=== PATIENT | male | born 1995 | race Hispanic/Latino ===

== ENCOUNTER 2019-07-19 01:05 | Emergency (ER) | payer OTHER ==
[~2019-07-19] VITALS: Ht 177.8 cm; Wt 136.1 kg
[~2019-07-19 01:05] MED LIST: CLONAZEPAM1 MG PO; OXCARBAZEPINE300 MG PO; OXCARBAZEPINE600 MG PO; ZONISAMIDE100 MG PO
[2019-07-19] MEDS ORDERED: ACETAMINOPHEN/CODEINE 300MG - 30MG TAB ONE (02:51)
[2019-07-19] MEDS ORDERED: ONDANSETRON HCL 4 MG ORAL DISINTEGRATING TAB ONE (02:51)
[2019-07-19] MEDS ORDERED: ACETAMINOPHEN/CODEINE 300MG - 30MG TAB PO ONE (03:00)
[2019-07-19] MEDS ORDERED: ONDANSETRON HCL 4 MG ORAL DISINTEGRATING TAB PO ONE (03:00)
[2019-07-19 03:05] LABS: INFLUENZAE A&B ANTIGEN (RAPID) NEGATIVE (NEGATIVE); STREPTOCOCCUS GRP A ANTIGEN NEGATIVE (NEGATIVE)
[2019-07-19] MEDS ORDERED: SODIUM CHLORIDE 0.9% 1000ML 2,000 ML ONE (03:33)
[2019-07-19] MEDS ORDERED: SODIUM CHLORIDE 0.9% 1000ML 2,000 ML IV ONE (03:45)
[2019-07-19 04:00] LABS: BASOPHILS % 0.4 % (0.0-1.0); EOSINOPHILS % 0.1 % (0.0-6.0); HEMATOCRIT 44.5 % (38.2-49.6); HEMOGLOBIN 14.7 g/dL (14.0-18.0); LYMPHOCYTES # (AUTO) 0.5 (1.0-3.2); LYMPHOCYTES % 5.9 % (18.0-39.1); MEAN CORPUSCULAR HEMOGLOBIN 29.9 pg (28-32); MEAN CORPUSCULAR VOLUME 90.6 fL (81-99); MONOCYTES # (AUTO) 0.7 (0.2-0.8); MONOCYTES % 8.4 % (4.4-11.3); NEUTROPHILS # (AUTO) 7.2 (2.1-6.9); NEUTROPHILS % 84.6 % (38.7-80.0); PLATELET COUNT 286 x10e3/uL (140-360); RED BLOOD COUNT 4.91 x10e6/uL (4.3-5.7); RED CELL DISTRIBUTION WIDTH 12.8 % (11.7-14.4)
[2019-07-19 04:14] LABS: ALANINE AMINOTRANSFERASE 30 IU/L (0-55); ALBUMIN 4.1 g/dL (3.5-5.0); ALBUMIN/GLOBULIN RATIO 1.1 (0.8-2.0); ALKALINE PHOSPHATASE 72 IU/L (40-150); BLOOD UREA NITROGEN 9 mg/dL (7-26); BUN/CREATININE RATIO 9 (6-25); CALCIUM 9.5 mg/dL (8.4-10.2); CARBON DIOXIDE 27 mmol/L (22-29); CHLORIDE 102 mmol/L (98-107); EST GLOMERULAR FILTRATION RATE > 60 ML/MIN (60-); GLUCOSE 93 mg/dL (74-118); SODIUM 136 mmol/L (136-145)
[2019-07-19] MEDS ORDERED: METOCLOPRAMIDE HCL 10 MG/2ML VIAL IV ONE (04:30)
[2019-07-19 04:52] LABS: BILIRUBIN,URINE NEGATIVE (NEGATIVE); CLARITY,URINE CLEAR (CLEAR); COLOR,URINE YELLOW (YELLOW); KETONES,URINE NEGATIVE (NEGATIVE); LEUKOCYTE ESTERASE ,URINE NEGATIVE (NEGATIVE); NITRITE,URINE NEGATIVE (NEGATIVE); PROTEIN,URINE DIPSTICK TRACE (NEGATIVE); URINE UROBILINOGEN 0.2 mg/dL (0.2 - 1)
[2019-07-19 05:11] LABS: BACTERIA,URINE RARE /HPF; EPITHELIAL CELLS,URINE FEW /LPF; RBC,URINE 0-5 /HPF (0-5)
--- NOTE | 2019-07-19 05:33 | Diagnostic Imaging Report ---
EXAMINATION: CHEST 2 VIEWS INDICATION: Fever bodyaches nausea dizziness COMPARISON: None FINDINGS: TUBES and LINES: None. LUNGS: Normal lung volumes. Lungs are clear. No consolidations. PLEURA: No pleural effusion or pneumothorax. HEART AND MEDIASTINUM: The cardiomediastinal silhouette is unremarkable. BONES AND SOFT TISSUES: No acute osseous lesion. Soft tissues are unremarkable. UPPER ABDOMEN: No free air under the diaphragm. IMPRESSION: No acute thoracic radiographic abnormality. Signed by: Charles Bennett DO on 07/19/2019 5:30 AM
[2019-07-19] MEDS ORDERED: ACETAMINOPHEN 325 MG TAB ONE (06:41)
[2019-07-19] MEDS ORDERED: ACETAMINOPHEN 325 MG TAB PO ONE (06:45)
[2019-07-19] MEDS ORDERED: SODIUM CHLORIDE 0.9% 1000ML 1,000 ML IV STA (07:06)
--- NOTE | 2019-07-19 08:01 | NUR ---
consent for spinal tap signed by patient.
--- NOTE | 2019-07-19 08:05 | NUR ---
Dr. Taylor in room to complete spinal tap.
[2019-07-19 08:30] LABS: APPEARANCE,CSF CLEAR (CLEAR); COLOR,CSF COLORLESS (COLORLESS)
[2019-07-19 08:31] LABS: TUBE NUMBER 1
[2019-07-19 09:27] LABS: WHITE BLOOD CELL,CSF 1 cells/uL (0-5)
[2019-07-19 09:45] LABS: LYMPHOCYTES,CSF 40 % (40-80); MONOCYTES,CSF 8 %; NEUTROPHILS,CSF 52 % (0-6)
== END 2019-07-19 10:28 | disposition home or self-care (01) ==
LOC: UNMERGE 01:05 → MERGE 01:05 → ER 01:05
DX: R50.9 Fever, unspecified (principal); R05 Cough; B34.9 Viral infection, unspecified
CPT/HCPCS: 36415; 71046; 80053; 81001; 83518; 85025; 86789; 87070 ×2; 87205; 87400; 89051; 99284; J2765; J7030; Q0162

== ENCOUNTER 2019-07-28 13:25 | Emergency (ER) | payer OTHER ==
[~2019-07-28] VITALS: Ht 177.8 cm; Wt 136.1 kg
--- OUTSIDE RECORDS SUMMARY | 2019-07-28 13:28 | XMS REPORT ---
Author Author [facility] Address Unknown Phone Unavailable Care Team Providers Care Visitor Services Specialist Name Role Phone ARENASMELCHOR Unavailable Unavailable Terry DAVID Unavailable Unavailable Luis MILIAN Unavailable Unavailable WARD MILLIGAN Unavailable Unavailable Problems This patient has no known problems. Allergies, Adverse Reactions, Alerts This patient has no known allergies or adverse reactions. Medications This patient has no known medications. Encounters Start Date/Time End Date/Time Encounter Type Admission Type Attending [facility] Facility Care Department Encounter ID 2016-11-27 00:00:00 2016-11-28 00:00:00 Outpatient [facility] [id number] Results Test Description Test Time Test Comments Text Results Atomic Results Result Comments CHEST 2 VIEWS 2019-07-19 05:16:00 [place] [address] Patient Name: MANFRED CHRISTENSEN MR #: [id number] : 1995 Age/Sex: 23/M Req #: [id number] Adm Physician: Ordered by: ARI DE LA FUENTE DO Report #: [id number] Location: ER Room/Bed: Procedure: [id number] DX/CHEST 2 VIEWS Exam Date: 07/19/19 Exam Time: 0230 REPORT STATUS: Signed EXAMINATION: CHEST 2 VIEWS INDICATION: Fever bodyaches nausea dizziness COMPARISON: None FINDINGS: TUBES and LINES: None. LUNGS: Normal lung volumes. Lungs are clear. No consolidations. PLEURA: No pleural effusion or pneumothorax. HEART AND MEDIASTINUM: The cardiomediastinal silhouette is unremarkable. BONES AND SOFT TISSUES: No acute osseous lesion. Soft tissues are unremarkable. UPPER ABDOMEN: No free air under the diaphragm. IMPRESSION: No acute thoracic radiographic abnormality. Signed by: Charles Bennett DO on 07/19/2019 5:30 AM Dictated By: CHARLES BENNETT DO 9 Transcribed By: JOSÉ LUIS on 07/19/19529 COPY TO: ARI DE LA FUENTE DO CHEST 2 VIEWS 2019-07-19 05:16:00 [place] [address] Patient Name: MANFRED CHRISTENSEN MR #: [id number] : 1995 Age/Sex: 23/M Req #: [id number] Adm Physician: Ordered by: ARI DE LA FUENTE DO Report #: [id number] Location: ER Room/Bed: Procedure: [id number] DX/CHEST 2 VIEWS Exam Date: 07/19/19 Exam Time: 0230 REPORT STATUS: Signed EXAMINATION: CHEST 2 VIEWS INDICATION: Fever bodyaches nausea dizziness COMPARISON: None FINDINGS: TUBES and LINES: None. LUNGS: Normal lung volumes. Lungs are clear. No consolidations. PLEURA: No pleural effusion or pneumothorax. HEART AND MEDIASTINUM: The cardiomediastinal silhouette is unremarkable. BONES AND SOFT TISSUES: No acute osseous lesion. Soft tissues are unremarkable. UPPER ABDOMEN: No free air under the diaphragm. IMPRESSION: No acute thoracic radiographic abnormality. Signed by: Charles Bennett DO on 07/19/2019 5:30 AM Dictated By: CHARLES BENNETT DO 9 Transcribed By: JOSÉ LUIS on 07/19/19529 COPY TO: ARI DE LA FUENTE DO ABDOMEN-1VIEW (KUB) 2018-02-23 09:02:00 [place] [address] Patient Name: MANFRED CHRISTENSEN MR #: [id number] : 1995 Age/Sex: 23/M Req #: [id number] Adm Physician: Ordered by: POONAM DAVID MD Report #: [id number] Location: ER Room/Bed: Procedure: [id number] DX/ABDOMEN-1VIEW (KUB) Exam Date: 02/23/18 Exam Time: 0810 REPORT STATUS: Signed PROCEDURE: X-RAY ABDOMEN - KUB COMPARISON: None. INDICATIONS: ABDOMINAL PAIN FINDINGS: There is a non- obstructive bowel-gas pattern. There are no calcifications projected over the renal shadows, expected course of the ureters or bladder. No significantly elevated stool burden. There are no acute osseous abnormalities. The lung bases are clear. CONCLUSION: Unremarkable abdominal radiographs. Dictated by: PREMA DRUMMOND M.D. on 02/23/2018 at 9:02 Electronically approved by: PREMA DRUMMOND M.D. on 02/23/2018 at 9:02 Dictated By: PREMA DRUMMOND MD 1 Transcribed By: NGA on 02/23/18901 COPY TO: POONAM DAVID MD ABDOMEN-1VIEW (KUB) 2018-02-23 09:02:00 [place] [address] Patient Name: MANFRED CHRISTENSEN MR #: [id number] : 1995 Age/Sex: 23/M Req #: [id number] Adm Physician: Ordered by: POONAM DAVID MD Report #: [id number] Location: ER Room/Bed: Procedure: [id number] DX/ABDOMEN-1VIEW (KUB) Exam Date: 02/23/18 Exam Time: 809 REPORT STATUS: Signed PROCEDURE: X-RAY ABDOMEN - KUB COMPARISON: None. INDICATIONS: ABDOMINAL PAIN FINDINGS: There is a non- obstructive bowel-gas pattern. There are no calcifications projected over the renal shadows, expected course of the ureters or bladder. No significantly elevated stool burden. There are no acute osseous abnormalities. The lung bases are clear. CONCLUSION: Unremarkable abdominal radiographs. Dictated by: PREMA DRUMMOND M.D. on 02/23/2018 at 9:02 Electronically approved by: PREMA DRUMMOND M.D. on 02/23/2018 at 9:02 Dictated By: PREMA DRUMMOND MD 1 Transcribed By: NGA on 02/23/18901 COPY TO: POONAM DAVID MD CBC W/PLT COUNT & AUTO DIFFERENTIAL 2016-07-17 07:24:00 WHITE BLOOD CELL COUNT (BEAKER) (test pidb=915) 8.5 K/ L 4.0-10.0 RED BLOOD CELL COUNT (BEAKER) (test rrba=970) 4.71 M/ L 4.20-5.80 HEMOGLOBIN (BEAKER) (test ydhz=167) 13.9 GM/DL 13.0-16.8 HEMATOCRIT (BEAKER) (test mtnk=259) 43.5 % 40.0-50.0 MEAN CORPUSCULAR VOLUME (BEAKER) (test pqrs=771) 92.3 fL 82.0-98.0 MEAN CORPUSCULAR HEMOGLOBIN (BEAKER) (test kush=916) 29.5 pg 27.0-33.0 MEAN CORPUSCULAR HEMOGLOBIN CONC (BEAKER) (test qmkt=299) 32.0 GM/DL 32.0-36.0 RED CELL DISTRIBUTION WIDTH (BEAKER) (test pydq=713) 12.3 % 10.3-14.2 PLATELET COUNT (BEAKER) (test hrgs=561) 283 K/CU MM 150-430 MEAN PLATELET VOLUME (BEAKER) (test ebpi=800) 7.2 fL 6.5-10.5 NUCLEATED RED BLOOD CELLS (BEAKER) (test uybv=588) 0 /100 WBC 0-0 NEUTROPHILS RELATIVE PERCENT (BEAKER) (test ewok=074) 59 % LYMPHOCYTES RELATIVE PERCENT (BEAKER) (test nftg=141) 33 % MONOCYTES RELATIVE PERCENT (BEAKER) (test hwwm=103) 7 % EOSINOPHILS RELATIVE PERCENT (BEAKER) (test deqe=333) 1 % BASOPHILS RELATIVE PERCENT (BEAKER) (test ehru=181) 1 % NEUTROPHILS ABSOLUTE COUNT (BEAKER) (test xvnu=664) 5.00 K/ L 1.80-8.00 LYMPHOCYTES ABSOLUTE COUNT (BEAKER) (test dodv=711) 2.78 K/ L 1.48-4.50 MONOCYTES ABSOLUTE COUNT (BEAKER) (test coqz=158) 0.59 K/ L 0.00-1.30 EOSINOPHILS ABSOLUTE COUNT (BEAKER) (test hdoa=994) 0.09 K/ L 0.00-0.50 BASOPHILS ABSOLUTE COUNT (BEAKER) (test toem=229) 0.05 K/ L 0.00-0.20 0.00COMPREHENSIVE METABOLIC [id number] 06:50:00* Test Item Value Reference Range Comments TOTAL PROTEIN (BEAKER) (test syyd=963) 7.3 gm/dL 6.0-8.3 Specimen moderately hemolyzed ALBUMIN (BEAKER) (test zhcc=9285) 3.7 g/dL 3.5-5.0 Specimen moderately hemolyzed ALKALINE PHOSPHATASE (BEAKER) (test lmau=916) 80 U/L 40-150 BILIRUBIN TOTAL (BEAKER) (test ndaw=001) 0.4 mg/dL 0.2-1.2 Specimen moderately hemolyzed SODIUM (BEAKER) (test lhgd=095) 137 meq/L 136-145 POTASSIUM (BEAKER) (test qdqn=102) 4.3 meq/L 3.5-5.1 Specimen moderately hemolyzed CHLORIDE (BEAKER) (test nubx=925) 105 meq/L 98-107 CO2 (BEAKER) (test xyoh=070) 24 meq/L 22-29 BLOOD UREA NITROGEN (BEAKER) (test ucri=456) 12 mg/dL 7-21 CREATININE (BEAKER) (test knxo=369) 0.75 mg/dL 0.57-1.25 Specimen moderately hemolyzed GLUCOSE RANDOM (BEAKER) (test gydn=503) 103 mg/dL 70-105 CALCIUM (BEAKER) (test zqax=569) 8.8 mg/dL 8.4-10.2 AST (SGOT) (BEAKER) (test fetc=322) 25 U/L 5-34 Specimen moderately hemolyzed ALT (SGPT) (BEAKER) (test yhog=538) 31 U/L 6-55 Specimen moderately hemolyzed EGFR (BEAKER) (test vgam=3341) 131 mL/min/1.73 sq m ESTIMATED GFR IS NOT ACCURATE CREATININE CLEARANCE IN PREDICTING GLOMERULAR FILTRATION RATE. ESTIMATED GFR IS NOT APPLICABLE FOR DIALYSIS PATIENTS. CBC W/PLT COUNT & AUTO [id number] 17:37:00* Test Item Value Reference Range Comments WHITE BLOOD CELL COUNT (BEAKER) (test bxry=394) 9.5 K/ L 4.0-10.0 RED BLOOD CELL COUNT (BEAKER) (test hbju=286) 4.52 M/ L 4.20-5.80 HEMOGLOBIN (BEAKER) (test pkmi=245) 13.9 GM/DL 13.0-16.8 HEMATOCRIT (BEAKER) (test hjht=335) 40.6 % 40.0-50.0 MEAN CORPUSCULAR VOLUME (BEAKER) (test chxq=969) 89.8 fL 82.0-98.0 MEAN CORPUSCULAR HEMOGLOBIN (BEAKER) (test qmpm=174) 30.8 pg 27.0-33.0 MEAN CORPUSCULAR HEMOGLOBIN CONC (BEAKER) (test yhhw=852) 34.3 GM/DL 32.0-36.0 RED CELL DISTRIBUTION WIDTH (BEAKER) (test wlhy=488) 13.3 % 10.3-14.2 PLATELET COUNT (BEAKER) (test wyyu=773) 268 K/CU MM 150-430 MEAN PLATELET VOLUME (BEAKER) (test dzqp=575) 7.5 fL 6.5-10.5 NUCLEATED RED BLOOD CELLS (BEAKER) (test klap=256) 0 /100 WBC 0-0 NEUTROPHILS RELATIVE PERCENT (BEAKER) (test bijl=642) 80 % LYMPHOCYTES RELATIVE PERCENT (BEAKER) (test psbm=279) 13 % MONOCYTES RELATIVE PERCENT (BEAKER) (test etvv=864) 6 % EOSINOPHILS RELATIVE PERCENT (BEAKER) (test ludp=024) 1 % BASOPHILS RELATIVE PERCENT (BEAKER) (test fzum=942) 0 % NEUTROPHILS ABSOLUTE COUNT (BEAKER) (test uder=121) 7.55 K/ L 1.80-8.00 LYMPHOCYTES ABSOLUTE COUNT (BEAKER) (test ugfl=044) 1.25 K/ L 1.48-4.50 MONOCYTES ABSOLUTE COUNT (BEAKER) (test muij=597) 0.57 K/ L 0.00-1.30 EOSINOPHILS ABSOLUTE COUNT (BEAKER) (test rwel=228) 0.06 K/ L 0.00-0.50 BASOPHILS ABSOLUTE COUNT (BEAKER) (test woyv=342) 0.01 K/ L 0.00-0.20 [id number] 16:44:00* Test Item Value Reference Range Comments CARBAMAZEPINE LEVEL (BEAKER) (test jyqv=234) < ug/mL 4.0-12.0 BASIC METABOLIC [id number] 16:29:00* Test Item Value Reference Range Comments SODIUM (BEAKER) (test fvhy=057) 137 meq/L 136-145 POTASSIUM (BEAKER) (test thwg=516) 4.3 meq/L 3.5-5.1 Specimen slightly hemolyzed CHLORIDE (BEAKER) (test qwzt=746) 104 meq/L 98-107 CO2 (BEAKER) (test crom=147) 22 meq/L 22-29 BLOOD UREA NITROGEN (BEAKER) (test lxqs=554) 17 mg/dL 7-21 CREATININE (BEAKER) (test psiz=021) 0.77 mg/dL 0.57-1.25 Specimen slightly hemolyzed GLUCOSE RANDOM (BEAKER) (test mrpk=325) 106 mg/dL 70-105 CALCIUM (BEAKER) (test ldjh=961) 9.2 mg/dL 8.4-10.2 EGFR (BEAKER) (test uoxr=2925) 128 mL/min/1.73 sq m ESTIMATED GFR IS NOT ACCURATE CREATININE CLEARANCE IN PREDICTING GLOMERULAR FILTRATION RATE. ESTIMATED GFR IS NOT APPLICABLE FOR DIALYSIS PATIENTS. VITAMIN D, [id number] 06:31:00* Test Item Value Reference Range Comments VITAMIN D 25-OH (BEAKER) (test qdgq=2998) < ng/mL 13.0-47.8 TSH/FREE T4 IF [id number] 06:22:00* Test Item Value Reference Range Comments THYROID STIMULATING HORMONE (BEAKER) (test mxqd=369) 0.97 uIU/mL 0.35-4.94 VITAMIN B12 AND [id number] 06:22:00* Test Item Value Reference Range Comments VITAMIN B12 (BEAKER) (test tcpe=325) 379 pg/mL 213-816 FOLATE (BEAKER) (test unyp=220) 6.0 ng/mL >=7.0 Effective 04/04/2014: Folate Reference Range ChangeNew: >=7.0 Previous: >=5.4 COMPREHENSIVE METABOLIC [id number] 05:56:00* Test Item Value Reference Range Comments TOTAL PROTEIN (BEAKER) (test wyqs=942) 6.5 gm/dL 6.0-8.3 ALBUMIN (BEAKER) (test wgsq=0523) 3.6 g/dL 3.5-5.0 ALKALINE PHOSPHATASE (BEAKER) (test dtrf=501) 78 U/L 40-150 BILIRUBIN TOTAL (BEAKER) (test wftn=554) 0.3 mg/dL 0.2-1.2 SODIUM (BEAKER) (test wylf=264) 137 meq/L 136-145 POTASSIUM (BEAKER) (test wpjo=698) 4.0 meq/L 3.5-5.1 CHLORIDE (BEAKER) (test inde=495) 105 meq/L 98-107 CO2 (BEAKER) (test usrr=920) 25 meq/L 22-29 BLOOD UREA NITROGEN (BEAKER) (test seug=124) 11 mg/dL 7-21 CREATININE (BEAKER) (test hsyi=227) 0.69 mg/dL 0.57-1.25 GLUCOSE RANDOM (BEAKER) (test xdcy=289) 115 mg/dL 70-105 CALCIUM (BEAKER) (test thod=007) 8.7 mg/dL 8.4-10.2 AST (SGOT) (BEAKER) (test oavc=533) 18 U/L 5-34 ALT (SGPT) (BEAKER) (test qghq=847) 24 U/L 6-55 EGFR (BEAKER) (test tnla=7205) 145 mL/min/1.73 sq m ESTIMATED GFR IS NOT ACCURATE CREATININE CLEARANCE IN PREDICTING GLOMERULAR FILTRATION RATE. ESTIMATED GFR IS NOT APPLICABLE FOR DIALYSIS PATIENTS. PHENYTOIN LEVEL, [id number] 05:54:00* Test Item Value Reference Range Comments PHENYTOIN (DILANTIN) (BEAKER) (test slep=121) 0.9 ug/mL 10.0-20.0 HEPATIC FUNCTION [id number] 05:51:00* Test Item Value Reference Range Comments TOTAL PROTEIN (BEAKER) (test vlwd=958) 6.4 gm/dL 6.0-8.3 ALBUMIN (BEAKER) (test hinx=3091) 3.7 g/dL 3.5-5.0 BILIRUBIN TOTAL (BEAKER) (test sdid=048) 0.3 mg/dL 0.2-1.2 BILIRUBIN DIRECT (BEAKER) (test mssi=793) 0.1 mg/dL 0.1-0.5 ALKALINE PHOSPHATASE (BEAKER) (test keab=000) 77 U/L 40-150 AST (SGOT) (BEAKER) (test exiw=442) 16 U/L 5-34 ALT (SGPT) (BEAKER) (test btli=674) 24 U/L 6-55 CBC (HEMOGRAM ONLY)2016-07-07 05:47:00* Test Item Value Reference Range Comments WHITE BLOOD CELL COUNT (BEAKER) (test whgq=469) 9.0 K/ L 4.0-10.0 RED BLOOD CELL COUNT (BEAKER) (test ynrz=314) 4.68 M/ L 4.20-5.80 HEMOGLOBIN (BEAKER) (test tqfv=868) 14.4 GM/DL 13.0-16.8 HEMATOCRIT (BEAKER) (test oebx=479) 43.1 % 40.0-50.0 MEAN CORPUSCULAR VOLUME (BEAKER) (test bkdt=252) 92.0 fL 82.0-98.0 MEAN CORPUSCULAR HEMOGLOBIN (BEAKER) (test mhfe=770) 30.7 pg 27.0-33.0 MEAN CORPUSCULAR HEMOGLOBIN CONC (BEAKER) (test mskm=384) 33.4 GM/DL 32.0-36.0 RED CELL DISTRIBUTION WIDTH (BEAKER) (test tklp=455) 12.0 % 10.3-14.2 PLATELET COUNT (BEAKER) (test eeff=935) 287 K/CU MM 150-430 MEAN PLATELET VOLUME (BEAKER) (test bbel=106) 7.0 fL 6.5-10.5 NUCLEATED RED BLOOD CELLS (BEAKER) (test ixar=413) 0 /100 WBC 0-0 0.00RAPID DRUG SCREEN, [id number] 11:54:00* Test Item Value Reference Range Comments BARBITURATE URINE (BEAKER) (test scaw=574) Negative Negative BENZODIAZEPINE SCREEN URINE (BEAKER) (test exci=737) Negative Negative COCAINE (METAB.) SCREEN (BEAKER) (test cond=3196) Negative Negative METHADONE SCREEN (BEAKER) (test veyg=2350) Negative Negative OPIATE SCREEN URINE (BEAKER) (test wney=433) Negative Negative CANNABINOID SCREEN URINE (BEAKER) (test tcaf=476) Negative Negative AMPH/METHAMPH SCREEN (BEAKER) (test fqch=7053) Negative Negative PHENCYCLIDINE SCREEN URINE (BEAKER) (test xzhp=201) Negative Negative OXYCODONE SCREEN URINE (BEAKER) (test vwor=8032) Negative Negative DRUG CUTOFF CONC.Cocaine 300 ng/mL Cannabinoid 50 ng/mL Benzodiazepine 200 ng/mLBarbiturate 200 ng/mLPh encyclidine 25 ng/mLOpiate 300 ng/mLMethadone 300 ng/mLAmphetamine/ 1000 ng/mL MethamphetamineOxycodone 300 ng/mLURINALYSIS W/ [id number] 11:47:00* Test Item Value Reference Range Comments COLOR (BEAKER) (test escx=809) Yellow CLARITY (BEAKER) (test fowg=510) Hazy SPECIFIC GRAVITY UA (BEAKER) (test vbwh=107) 1.020 1.001-1.035 PH UA (BEAKER) (test ldan=581) 7.5 5.0-8.0 PROTEIN UA (BEAKER) (test gzdm=828) 10 mg/dL Negative GLUCOSE UA (BEAKER) (test sqmj=655) Negative Negative KETONES UA (BEAKER) (test cqaa=015) Negative Negative BILIRUBIN UA (BEAKER) (test nhxd=103) Negative Negative BLOOD UA (BEAKER) (test bihi=774) Negative Negative NITRITE UA (BEAKER) (test qgwj=003) Negative Negative LEUKOCYTE ESTERASE UA (BEAKER) (test nrkq=879) Trace Negative UROBILINOGEN UA (BEAKER) (test vwxt=362) 2.0 mg/dL 0.2-1.0 RBC UA (BEAKER) (test igxk=671) 0 /HPF WBC UA (BEAKER) (test ggcn=126) 0 /HPF MUCUS (BEAKER) (test aeoy=7654) Rare SQUAMOUS EPITHELIAL (BEAKER) (test dkho=656) 1 /HPF YEAST (BEAKER) (test tgmw=1928) Few SOURCE(BEAKER) (test nssn=1760) Urine, Clean Catch BASIC METABOLIC [id number] 11:28:00* Test Item Value Reference Range Comments SODIUM (BEAKER) (test jmcb=369) 137 meq/L 136-145 POTASSIUM (BEAKER) (test qzdl=561) 4.0 meq/L 3.5-5.1 CHLORIDE (BEAKER) (test jblu=255) 102 meq/L 98-107 CO2 (BEAKER) (test fpan=019) 25 meq/L 22-29 BLOOD UREA NITROGEN (BEAKER) (test sbcf=750) 13 mg/dL 7-21 CREATININE (BEAKER) (test mwio=866) 0.78 mg/dL 0.57-1.25 GLUCOSE RANDOM (BEAKER) (test vcsu=667) 114 mg/dL 70-105 CALCIUM (BEAKER) (test xtps=593) 9.4 mg/dL 8.4-10.2 EGFR (BEAKER) (test lfrt=1817) 126 mL/min/1.73 sq m ESTIMATED GFR IS NOT ACCURATE CREATININE CLEARANCE IN PREDICTING GLOMERULAR FILTRATION RATE. ESTIMATED GFR IS NOT APPLICABLE FOR DIALYSIS PATIENTS. CBC W/PLT COUNT & AUTO [id number] 11:25:00* Test Item Value Reference Range Comments WHITE BLOOD CELL COUNT (BEAKER) (test gfyi=883) 10.3 K/ L 4.0-10.0 RED BLOOD CELL COUNT (BEAKER) (test kfus=199) 4.67 M/ L 4.20-5.80 HEMOGLOBIN (BEAKER) (test ifta=369) 14.4 GM/DL 13.0-16.8 HEMATOCRIT (BEAKER) (test iiez=021) 42.0 % 40.0-50.0 MEAN CORPUSCULAR VOLUME (BEAKER) (test hkxp=895) 90.0 fL 82.0-98.0 MEAN CORPUSCULAR HEMOGLOBIN (BEAKER) (test etqy=361) 30.9 pg 27.0-33.0 MEAN CORPUSCULAR HEMOGLOBIN CONC (BEAKER) (test cyrv=298) 34.3 GM/DL 32.0-36.0 RED CELL DISTRIBUTION WIDTH (BEAKER) (test ofix=127) 13.0 % 10.3-14.2 PLATELET COUNT (BEAKER) (test zsoz=446) 310 K/CU MM 150-430 MEAN PLATELET VOLUME (BEAKER) (test wzsm=812) 7.2 fL 6.5-10.5 NUCLEATED RED BLOOD CELLS (BEAKER) (test qjvc=284) 0 /100 WBC 0-0 NEUTROPHILS RELATIVE PERCENT (BEAKER) (test jylz=638) 79 % LYMPHOCYTES RELATIVE PERCENT (BEAKER) (test bnpw=052) 14 % MONOCYTES RELATIVE PERCENT (BEAKER) (test yhpk=735) 5 % EOSINOPHILS RELATIVE PERCENT (BEAKER) (test rcml=609) 1 % BASOPHILS RELATIVE PERCENT (BEAKER) (test znxt=381) 0 % NEUTROPHILS ABSOLUTE COUNT (BEAKER) (test ycmc=172) 8.13 K/ L 1.80-8.00 LYMPHOCYTES ABSOLUTE COUNT (BEAKER) (test xbdi=802) 1.41 K/ L 1.48-4.50 MONOCYTES ABSOLUTE COUNT (BEAKER) (test srsz=654) 0.56 K/ L 0.00-1.30 EOSINOPHILS ABSOLUTE COUNT (BEAKER) (test eiqm=257) 0.11 K/ L 0.00-0.50 BASOPHILS ABSOLUTE COUNT (BEAKER) (test tfpz=534) 0.04 K/ L 0.00-0.20 0.00
[2019-07-28 14:31] LABS: STREPTOCOCCUS GRP A ANTIGEN NEGATIVE (NEGATIVE)
[2019-07-28 14:36] LABS: INFLUENZAE A&B ANTIGEN (RAPID) NEGATIVE (NEGATIVE)
[2019-07-28 15:04] VITALS: BP 131/83
== END 2019-07-28 15:15 | disposition home or self-care (01) ==
LOC: ER 13:25
DX: J02.0 Streptococcal pharyngitis (principal); G40.909 Epilepsy, unspecified, not intractable, without status epilepticus
CPT/HCPCS: 83518; 87070; 87400; 99283

== ENCOUNTER 2019-10-03 14:12 | Emergency (ER) | payer OTHER ==
[~2019-10-03] VITALS: Ht 177.8 cm; Wt 136.1 kg
--- OUTSIDE RECORDS SUMMARY | 2019-10-03 14:15 | XMS REPORT | Clinical Summary ---
Author Author [facility] Address Unknown Phone Unavailable Care Team Providers Care Loft Worker Name Role Phone Gill Porras MD PCP Unavailable Allergies No Known Allergies Medications End Date Status Medication Sig Dispensed Refills Start Date Active OXcarbazepine (TRILEPTAL) Take 600 mg 0 600 MG tablet by mouth every morning . Active OXcarbazepine (TRILEPTAL) Take 600 mg 0 600 MG tablet by mouth daily 600 mg at noon time . Active OXcarbazepine (TRILEPTAL) Take 1,200 mg 0 600 MG tablet by mouth nightly. Active Problems Problem Noted Date Status epilepticus 07/06/2016 Seizure 08/08/2013 Immunizations Name Dates Previously Given Next Due Influenza Three-TIV PF 5+ 07/17/2016 YR Family History Medical History Relation Name Comments Depression Brother Depression Brother Depression Father Heart disease Father Depression Mother Drug abuse Paternal Uncle Depression Sister Relation Name Status Comments Brother Brother Father Mother Paternal Uncle Sister Social History Date Tobacco Use Types Packs/Day Years Used Never Smoker Alcohol Use Drinks/Week oz/Week Comments No Sex Assigned at Date Recorded Not on file Industry Job Start Date Occupation Not on file Not on file Not on file Travel End Travel History Travel Start No recent travel history available. Last Filed Vital Signs Not on file Plan of Treatment Not on file Results Not on fileafter 10/02/2018 Insurance Payer Benefit Subscriber ID Type Phone Address Plan / Group MEDICAID - MEDICAID [facility] xxxxxxxxx [employer] id [facility] Contracted PLAN [phone] Advance Directives For more information, please contact: [address] [address] Date Inactivated Comments Code Status Date Activated 07/17/2016 8:07 PM Full Code 07/16/2016 7:26 PM This code status was determined by: Patient 07/08/2016 2:12 AM Full Code 07/06/2016 3:05 PM This code status was determined by: Patient
--- OUTSIDE RECORDS SUMMARY | 2019-10-03 14:15 | XMS REPORT ---
Author Author [facility] t Organization [facility] Address [address] [facility] [address] [place] [address] Phone Unavailable Care Team Providers Care Intellectual Property Lawyer Name Role Phone NO, PCP PCP Unavailable MELCHOR ARENAS Attphys Unavailable Terry DAVID Attphys Unavailable Luis MILIAN Attphys Unavailable WARD MILLIGAN Attphys Unavailable JOEY YANES Admphys Unavailable JILLIAN WOLF-Chad Admphys Unavailable Payers Payer Name Policy Type Policy Number Effective Date Expiration Date S mony [facility] [employer] [id number] 2016 00:00 :00 [facility] [employer] [id number] 2016 00:00 :00 [facility] [employer] [id number] 2016 00:00 :00 [facility] [employer] [id number] 2016 00:00 :00 [facility] Problems Condition Name Condition Details Condition Category Status Onset Date Resolution Date Last Treatment Date Treating Clinician Comments Source Seizure Seizures Problem Active [facility] Allergies, Adverse Reactions, Alerts This patient has no known allergies or adverse reactions. Medications Ordered Medication Name Filled Medication Name Start Date Stop Da te Current Medication? Ordering Clinician Indication Dosage Frequency Signature (SIG) Comments Components Source Clonazepam 1 Mg Tablet Clonazepam 1 Mg Tablet Yes 1 As Needed as needed for Seizure [facility] Oxcarbazepine 300 Mg Tablet Oxcarbazepine 300 Mg Tablet Yes 900 Daily [facility] Oxcarbazepine 600 Mg Tablet Oxcarbazepine 600 Mg Tablet Yes [address] [facility] Zonisamide 100 Mg Capsule Zonisamide 100 Mg Capsule Yes 100 Bedtime [facility] Clonazepam 1 Mg Tablet Clonazepam 1 Mg Tablet Yes 1 As Needed as needed for Seizure [facility] Oxcarbazepine 300 Mg Tablet Oxcarbazepine 300 Mg Tablet Yes 900 Daily [facility] Oxcarbazepine 600 Mg Tablet Oxcarbazepine 600 Mg Tablet Yes [address] [facility] Zonisamide 100 Mg Capsule Zonisamide 100 Mg Capsule Yes 100 Bedtime [facility] Procedures Procedure Date / Time Performed Performing Clinician [facility] e X-ray of chest, two views 2019-07-28 00:00:00 SHANITA ANDERSON [facility] X-ray of chest, two views 2019-07-19 00:00:00 ARI DE LA FUENTE [facility] Encounters Start Date/Time End Date/Time Encounter Type Admission Type Attendi [facility] Emergency Department Facility Care Department Encounter ID Source 2019-07-28 13:25:00 2019-07-28 15:15:00 Departed Emergency Room [facility] [id number] [facility] 2019-07-19 01:05:00 2019-07-19 10:28:00 Departed Emergency Room 1 [facility] [id number] [facility] 2019-07-19 01:05:00 2019-07-19 10:28:00 Departed Emergency Room 1 ARENAS, [facility] [id number] [facility] 2018-02-23 07:27:00 2018-02-23 10:04:00 Departed Emergency Room 1 POONAM DAVID [facility] [id number] [facility] 2017-10-16 09:26:00 2017-10-16 10:34:00 Departed Emergency Room [facility] [id number] [facility] 2017-07-06 19:05:00 2017-07-06 20:39:00 Departed Emergency Room [facility] [id number] [facility] 2016-11-27 00:00:00 2016-11-28 00:00:00 Outpatient [facility] [id number] [facility] Results Test Description Test Time Test Comments Results Result Comments Source Influenza Virus Types A,B Antigen 2019-07-28 14:36:00 Test Item Influenza Virus Types A,B Antigen (test code = 59076-9) NEGATIVE NEGATIVE [facility] A Streptococcus Uzgehn0488-87-24 14:31:00* Test Item Value Reference Range Interpretation Comments Group A Streptococcus Screen (test code = 54383-1) NEGATIVE [facility] West Nile Virus IgG Antibody 2019-07-22 05:15:00* Test Item Value Reference Range Interpretation Comments CSF West Nile Virus IgG Antibody (test code = 88138-5) Negative Negative No detectable West Nile Virus IgG Antibody. If a recentinfection is suspected, a nother specimen should besubmitted for testing within 7-14 days.[facility] West Nile Virus IgM Iujcwqfb0272-95-64 05:15:00* Test Item Value Reference Range Interpretation Comments CSF West Nile Virus IgM Antibody (test code = 81085-0) Negative Negative No detectable West Nile Virus IgM Antibody. If a recentinfection is suspected, a nother specimen should besubmitted for testing within 7-14 days.Performed at: [address] [id number] Director: Sa gosia White MD, Phone: [phone] [facility] Health [facility] Qgcltojwedt5986-38-09 09:45:00* Test Item Value Reference Range Interpretation Comments CSF Neutrophils (test code = 28899-1) 52 0-6 [facility] Lcszbzenbra0192-09-37 09:45:00* Test Item Value Reference Range Interpretation Comments CSF Lymphocytes (test code = 20066-6) 40 40-80 [facility] Venhldpro2111-65-44 09:45:00* Test Item Value Reference Range Interpretation Comments CSF Monocytes (test code = 04321-6) 8 [facility] Total Cells Mdmnzfk7659-09-06 09:45:00* Test Item Value Reference Range Interpretation Comments CSF Total Cells Counted (test code = 98010-0) 52 [facility] Mvozcweqfuc6266-01-74 09:45:00* Test Item Value Reference Range Interpretation Comments CSF Neutrophils (test code = 32236-0) 52 0-6 [facility] Qgrodonjngg2438-26-42 09:45:00* Test Item Value Reference Range Interpretation Comments CSF Lymphocytes (test code = 03364-3) 40 40-80 [facility] Arjwcbznw3107-05-53 09:45:00* Test Item Value Reference Range Interpretation Comments CSF Monocytes (test code = 65890-5) 8 [facility] Total Cells Mfbifud0949-50-90 09:45:00* Test Item Value Reference Range Interpretation Comments CSF Total Cells Counted (test code = 36130-4) 52 [facility] [id number] 09:27:00* Test Item Value Reference Range Interpretation Comments CSF WBC (test code = 806-0) 1 0-5 [facility] QUI9451-63-24 09:27:00* Test Item Value Reference Range Interpretation Comments CSF RBC (test code = 85379-5) 829 0-10 [facility] LEA4200-67-52 09:27:00* Test Item Value Reference Range Interpretation Comments CSF WBC (test code = 806-0) 1 0-5 [facility] [id number] 09:27:00* Test Item Value Reference Range Interpretation Comments CSF RBC (test code = 95200-2) 829 0-10 [facility] Xpwtbihwxz4455-16-85 08:31:00* Test Item Value Reference Range Interpretation Comments CSF Appearance (test code = 95090-4) CLEAR CLEAR [facility] Hvsri5117-28-47 08:31:00* Test Item Value Reference Range Interpretation Comments CSF Color (test code = 28496-9) COLORLESS COLORLESS [facility] Cell Count Tube #2019-07-19 08:31:00 * Test Item Value Reference Range Interpretation Comments CSF Cell Count Tube # (test code = 38478-6) 1 [facility] Rutdawrflw9060-04-04 08:31:00* Test Item Value Reference Range Interpretation Comments CSF Appearance (test code = 68601-9) CLEAR CLEAR [facility] Fligb9423-72-42 08:31:00* Test Item Value Reference Range Interpretation Comments CSF Color (test code = 18118-5) COLORLESS COLORLESS [facility] Cell Count Tube #2019-07-19 08:31:00 * Test Item Value Reference Range Interpretation Comments CSF Cell Count Tube # (test code = 03342-6) 1 [facility]burgCHES 2 XXEKY7925-19-06 05:16:00 [place] [address] Patient Name: MANFRED CHRISTENSEN MR #: [id number] : 0 1995 Age/Sex: 23/M Req #: [id number] Adm Physician: Ordered by: ARI DE LA FUENTE DO Report #: [id number] Location: ER Room/Bed: Procedure: DX/CHEST 2 VIEWS Exam Date: 07/19/19 Exam Michael e: 0230 REPORT STATUS: Signed EX AMINATION: CHEST 2 VIEWS INDICATION: Fever bodyaches nausea dizziness COMPARISON: None FINDINGS: TUBES and LINES: None. LUNGS: Normal lung volumes. Lungs are clear. No consolidations. PLEU RA: No pleural effusion or pneumothorax. HEART AND MEDIASTINUM: The cardi omediastinal silhouette is unremarkable. BONES AND SOFT TISSUES: No ac tule river osseous lesion. Soft tissues are unremarkable. UPPER ABDOMEN: No noman e air under the diaphragm. IMPRESSION: No acute thoracic radiogra phic abnormality. Signed by: Charles Bennett DO on 07/19/2019 5:30 AM Dictated By: CHARLES BENNETT DO 9 Transcribed By: JOSÉ LUIS on 07/19/19529 COPY TO: ARI BILL DO CHEST 2 VZNZH8879-33-18 05:16:00 [place] [address] Patient Name: MANFRED CHRISTENSEN MR #: [id number] : 0 1995 Age/Sex: 23/M Req #: [id number] Adm Physician: Ordered by: ARI DE LA FUENTE DO Report #: [id number] Location: ER Room/Bed: Procedure: DX/CHEST 2 VIEWS Exam Date: 07/19/19 Exam Michael e: 0230 REPORT STATUS: Signed EX AMINATION: CHEST 2 VIEWS INDICATION: Fever bodyaches nausea dizziness COMPARISON: None FINDINGS: TUBES and LINES: None. LUNGS: Normal lung volumes. Lungs are clear. No consolidations. PLEU RA: No pleural effusion or pneumothorax. HEART AND MEDIASTINUM: The cardi omediastinal silhouette is unremarkable. BONES AND SOFT TISSUES: No ac tule river osseous lesion. Soft tissues are unremarkable. UPPER ABDOMEN: No noman e air under the diaphragm. IMPRESSION: No acute thoracic radiogra phic abnormality. Signed by: Charles Bennett DO on 07/19/2019 5:30 AM Dictated By: CHARLES BENNETT DO 9 Transcribed By: JOSÉ LUIS on 07/19/19529 COPY TO: ARI BILL DO Urine [id number] 05:11:00* Test Item Value Reference Range Interpretation Comments Urine WBC (test code = 5821-4) 6-10 0-5 [facility] TEH9310-36-02 05:11:00* Test Item Value Reference Range Interpretation Comments Urine RBC (test code = 18581-1) 0-5 0-5 [facility]burg[facility] Znvcffxc7848-47-02 05:11:00* Test Item Value Reference Range Interpretation Comments Urine Bacteria (test code = 74608-3) RARE NONE [facility]burg[facility] Epithelial Edioq0881-05-84 05:11:00 * Test Item Value Reference Range Interpretation Comments Urine Epithelial Cells (test code = 60972-0) FEW NONE [facility]burgUrine MST0300-41-03 05:11:00* Test Item Value Reference Range Interpretation Comments Urine WBC (test code = 5821-4) 6-10 0-5 [facility] [id number] 05:11:00* Test Item Value Reference Range Interpretation Comments Urine RBC (test code = 64120-2) 0-5 0-5 [facility]burg[facility]rine Joxynvde2322-35-43 05:11:00* Test Item Value Reference Range Interpretation Comments Urine Bacteria (test code = 63818-4) RARE NONE [facility]burgU[facility] Epithelial Mnwtf8670-18-95 05:11:00 * Test Item Value Reference Range Interpretation Comments Urine Epithelial Cells (test code = 87786-5) FEW NONE [facility]burgUrine Bzmxj3132-22-50 04:52:00* Test Item Value Reference Range Interpretation Comments Urine Color (test code = 5778-6) YELLOW YELLOW [facility]burgUrine Xfyljuz4427-74-87 04:52:00* Test Item Value Reference Range Interpretation Comments Urine Clarity (test code = 89469-7) CLEAR CLEAR [facility]burgUrine Specific Dssnspd4638-66-89 04:52:00 * Test Item Value Reference Range Interpretation Comments Urine Specific [place] (test code = 5811-5) 1.010 1.010-1.02 5 [facility]burgU[facility] tQ1327-88-53 04:52:00* Test Item Value Reference Range Interpretation Comments Urine pH (test code = 04051-1) 8 5-7 [facility]burg[facility] Leukocyte Dfryqjag6362-55-95 04:52:00* Test Item Value Reference Range Interpretation Comments Urine Leukocyte Esterase (test code = 5799-2) NEGATIVE NEGATIVE [facility]burgUrine Dqqmfba4957-28-53 04:52:00* Test Item Value Reference Range Interpretation Comments Urine Nitrite (test code = 46646-5) NEGATIVE NEGATIVE [facility]burgUrine Ephdkrg4034-10-19 04:52:00* Test Item Value Reference Range Interpretation Comments Urine Protein (test code = 5804-0) TRACE NEGATIVE [facility]burgUrine Glucose (UA)2019-07-19 04:52:00* Test Item Value Reference Range Interpretation Comments Urine Glucose (UA) (test code = 2349-9) NEGATIVE NEGATIVE [facility]burgUrine Ycrtgcz3445-21-60 04:52:00* Test Item Value Reference Range Interpretation Comments Urine Ketones (test code = 83099-5) NEGATIVE NEGATIVE [facility]burgUrine Eebkiopobdzj1013-57-84 04:52:00* Test Item Value Reference Range Interpretation Comments Urine Urobilinogen (test code = 14645-3) 0.2 0.2-1 [facility] Edisvtwil2740-51-00 04:52:00* Test Item Value Reference Range Interpretation Comments Urine Bilirubin (test code = 1978-6) NEGATIVE NEGATIVE [facility]burgUrine Hzokc9035-23-88 04:52:00* Test Item Value Reference Range Interpretation Comments Urine Blood (test code = 25655-6) NEGATIVE NEGATIVE [facility]burgUrine Mlhuc6794-48-90 04:52:00* Test Item Value Reference Range Interpretation Comments Urine Color (test code = 5778-6) YELLOW YELLOW [facility]burgUrine Dgzufaa7433-83-07 04:52:00* Test Item Value Reference Range Interpretation Comments Urine Clarity (test code = 08697-6) CLEAR CLEAR [facility] Specific Ftugxre0798-32-99 04:52:00 * Test Item Value Reference Range Interpretation Comments Urine Specific [place] (test code = 5811-5) 1.010 1.010-1.02 5 [facility]burgUrine eB7400-64-91 04:52:00* Test Item Value Reference Range Interpretation Comments Urine pH (test code = 27045-6) 8 5-7 [facility] Leukocyte Ugeasqlj7438-07-67 04:52:00* Test Item Value Reference Range Interpretation Comments Urine Leukocyte Esterase (test code = 5799-2) NEGATIVE NEGATIVE [facility]burgUrine Hepqxvv1319-56-79 04:52:00* Test Item Value Reference Range Interpretation Comments Urine Nitrite (test code = 92639-1) NEGATIVE NEGATIVE [facility]burgUrine Ixjwxbd3765-37-55 04:52:00* Test Item Value Reference Range Interpretation Comments Urine Protein (test code = 5804-0) TRACE NEGATIVE [facility]burg[facility]rine Glucose (UA)2019-07-19 04:52:00* Test Item Value Reference Range Interpretation Comments Urine Glucose (UA) (test code = 2349-9) NEGATIVE NEGATIVE [facility]burgUrine Ytfkzrv5948-80-85 04:52:00* Test Item Value Reference Range Interpretation Comments Urine Ketones (test code = 23459-0) NEGATIVE NEGATIVE [facility]burgUrine Uqrtmevzgxlq5348-96-58 04:52:00* Test Item Value Reference Range Interpretation Comments Urine Urobilinogen (test code = 28165-1) 0.2 0.2-1 [facility]burgUrine Ugjxkxika8181-46-75 04:52:00* Test Item Value Reference Range Interpretation Comments Urine Bilirubin (test code = 1978-6) NEGATIVE NEGATIVE [facility]burgUrine Rwqyq5010-45-56 04:52:00* Test Item Value Reference Range Interpretation Comments Urine Blood (test code = 77143-3) NEGATIVE [facility]IVE [facility] Txiro3772-41-26 04:33:00* Test Item Value Reference Range Interpretation Comments Sodium Level (test code = 2951-2) 136 136-145 [facility]burgPotassium Tfsjh5994-47-47 04:33:00* Test Item Value Reference Range Interpretation Comments Potassium Level (test code = 2823-3) 4.0 3.5-5.1 [facility]burgChloride Gbdju2183-94-74 04:33:00* Test Item Value Reference Range Interpretation Comments Chloride Level (test code = 2075-0) 102 98-107 [facility] EdinburgCarbon Dioxide Ujplk8167-04-01 04:33:00* Test Item Value Reference Range Interpretation Comments Carbon Dioxide Level (test code = 2028-9) 27 22-29 [facility]inburgAnion Szx4485-65-72 04:33:00* Test Item Value Reference Range Interpretation Comments Anion Gap (test code = 06390-4) 11.0 8-16 [facility]burgBlood Urea Uperfdhn8185-09-96 04:33:00* Test Item Value Reference Range Interpretation Comments Blood Urea Nitrogen (test code = 3094-0) 9 7-26 [facility] EdinburgCreatinine2020-03-03 04:33:00* Test Item Value Reference Range Interpretation Comments Creatinine (test code = 2160-0) 1.00 0.72-1.25 [facility]burgBUN/Creatinine Hybtj8241-75-35 04:33:00* Test Item Value Reference Range Interpretation Comments BUN/Creatinine Ratio (test code = 3097-3) 9 6-25 [facility] EdinburgEstimat Glomerular Filtration Rate 2019-07-19 04:33:00* Test Item Value Reference Range Interpretation Comments Estimat Glomerular Filtration Rate (test code = 370145124) > 60 >60 Ranges were taken from the National Kidney Disease Education Program and the [facility] Kidney Foundation literature.Reference ranges:60 or greater: Gbsxvz10-23 ( for 3 consecutive months): Chronic kidney disease 15 or less: Kidney failureSouth Texas Health System EdinburgGlucose Fqwxn8667-83-14 04:33:00* Test Item Value Reference Range Interpretation Comments Glucose Level (test code = WQL8725) 93 74-118 [facility]inburgCalcium Fjmam8656-13-96 04:33:00* Test Item Value Reference Range Interpretation Comments Calcium Level (test code = 94392-4) 9.5 8.4-10.2 [facility]burgTotal Thzkfjtqo2793-87-60 04:33:00* Test Item Value Reference Range Interpretation Comments Total Bilirubin (test code = 1975-2) 0.4 0.2-1.2 [facility] EdinburgAspartate Amino Transf (AST/SGOT) 2019-07-19 04:33:00* Test Item Value Reference Range Interpretation Comments Aspartate Amino Transf (AST/SGOT) (test code = Aspartate Amino Transf (AST/SGOT)) 20 5-34 [facility] EdinburgAlanine Aminotransferase (ALT/SGPT) 2019-07-19 04:33:00* Test Item Value Reference Range Interpretation Comments Alanine Aminotransferase (ALT/SGPT) (test code = 1742-6) 30 0-55 [facility] EdinburgTotal Xiprlab9222-89-07 04:33:00* Test Item Value Reference Range Interpretation Comments Total Protein (test code = 2885-2) 7.7 6.5-8.1 [facility] EdinburgAlbumin2020-03-03 04:33:00* Test Item Value Reference Range Interpretation Comments Albumin (test code = 1751-7) 4.1 3.5-5.0 [facility]inburgGlobulin2020-03-03 04:33:00* Test Item Value Reference Range Interpretation Comments Globulin (test code = 50242-4) 3.6 2.3-3.5 [facility] EdinburgAlbumin/Globulin Mnvoa8230-93-20 04:33:00 * Test Item Value Reference Range Interpretation Comments Albumin/Globulin Ratio (test code = 1759-0) 1.1 0.8-2.0 [facility] EdinburgAlkaline Neiektyihbx5893-24-85 04:33:00* Test Item Value Reference Range Interpretation Comments Alkaline Phosphatase (test code = 6768-6) 72 40-150 [facility] Scdxz3692-20-13 04:33:00* Test Item Value Reference Range Interpretation Comments Sodium Level (test code = 2951-2) 136 136-145 [facility]inburgPotassium Slovd6456-76-45 04:33:00* Test Item Value Reference Range Interpretation Comments Potassium Level (test code = 2823-3) 4.0 3.5-5.1 [facility] EdinburgChloride Spybp8714-69-56 04:33:00* Test Item Value Reference Range Interpretation Comments Chloride Level (test code = 2075-0) 102 98-107 [facility] EdinburgCarbon Dioxide Oizex6965-53-27 04:33:00* Test Item Value Reference Range Interpretation Comments Carbon Dioxide Level (test code = 2028-9) 27 22-29 [facility] EdinburgAnion Jdu2496-43-60 04:33:00* Test Item Value Reference Range Interpretation Comments Anion Gap (test code = 31425-3) 11.0 8-16 [facility] EdinburgBlood Urea Utzyzipc1787-98-07 04:33:00* Test Item Value Reference Range Interpretation Comments Blood Urea Nitrogen (test code = 3094-0) 9 7-26 [facility] EdinburgCreatinine2020-03-03 04:33:00* Test Item Value Reference Range Interpretation Comments Creatinine (test code = 2160-0) 1.00 0.72-1.25 [facility]burgBUN/Creatinine Raumk9960-69-45 04:33:00* Test Item Value Reference Range Interpretation Comments BUN/Creatinine Ratio (test code = 3097-3) 9 6-25 [facility] EdinburgEstimat Glomerular Filtration Rate 2019-07-19 04:33:00* Test Item Value Reference Range Interpretation Comments Estimat Glomerular Filtration Rate (test code = 429278824) > 60 >60 Ranges were taken from the National Kidney Disease Education Program and the [facility] Kidney Foundation literature.Reference ranges:60 or greater: Hlkrro19-92 ( for 3 consecutive months): Chronic kidney disease 15 or less: Kidney failureSouth Texas Health System EdinburgGlucose Ycvaw2532-77-66 04:33:00* Test Item Value Reference Range Interpretation Comments Glucose Level (test code = AXD7825) 93 74-118 [facility] EdinburgCalcium Xnmwq4268-01-03 04:33:00* Test Item Value Reference Range Interpretation Comments Calcium Level (test code = 50752-4) 9.5 8.4-10.2 [facility] Ed[facility]burgTotal Lxthgrbdb0388-43-02 04:33:00* Test Item Value Reference Range Interpretation Comments Total Bilirubin (test code = 1975-2) 0.4 0.2-1.2 [facility] EdinburgAspartate Amino Transf (AST/SGOT) 2019-07-19 04:33:00* Test Item Value Reference Range Interpretation Comments Aspartate Amino Transf (AST/SGOT) (test code = Aspartate Amino Transf (AST/SGOT)) 20 5-34 [facility] EdinburgAlanine Aminotransferase (ALT/SGPT) 2019-07-19 04:33:00* Test Item Value Reference Range Interpretation Comments Alanine Aminotransferase (ALT/SGPT) (test code = 1742-6) 30 0-55 [facility] EdinburgTotal Krxmqob2407-89-29 04:33:00* Test Item Value Reference Range Interpretation Comments Total Protein (test code = 2885-2) 7.7 6.5-8.1 [facility] EdinburgAlbumin2020-03-03 04:33:00* Test Item Value Reference Range Interpretation Comments Albumin (test code = 1751-7) 4.1 3.5-5.0 [facility] EdinburgGlobulin2020-03-03 04:33:00* Test Item Value Reference Range Interpretation Comments Globulin (test code = 25708-4) 3.6 2.3-3.5 [facility] EdinburgAlbumin/Globulin Xoqpm8793-81-95 04:33:00 * Test Item Value Reference Range Interpretation Comments Albumin/Globulin Ratio (test code = 1759-0) 1.1 0.8-2.0 [facility] EdinburgAlkaline Jrzexxvsoir4503-05-75 04:33:00* Test Item Value Reference Range Interpretation Comments Alkaline Phosphatase (test code = 6768-6) 72 40-150 [facility] EdinburgWhite Blood Bagpg9573-46-64 04:01:00* Test Item Value Reference Range Interpretation Comments White Blood Count (test code = 6690-2) 8.48 4.8-10.8 [facility] EdinburgRed Blood Rvefv6961-62-44 04:01:00* Test Item Value Reference Range Interpretation Comments Red Blood Count (test code = 789-8) 4.91 4.3-5.7 [facility] EdinburgHemoglobin2020-03-03 04:01:00* Test Item Value Reference Range Interpretation Comments Hemoglobin (test code = 13115-6) 14.7 14.0-18.0 [facility]inburgHematocrit2020-03-03 04:01:00* Test Item Value Reference Range Interpretation Comments Hematocrit (test code = 4544-3) 44.5 38.2-49.6 [facility] EdinburgMean Corpuscular Crknpx6716-57-73 04:01:00* Test Item Value Reference Range Interpretation Comments Mean Corpuscular Volume (test code = 787-2) 90.6 81-99 [facility] EdinburgMean Corpuscular Vpjviwqklt9447-67-64 04:01:00* Test Item Value Reference Range Interpretation Comments Mean Corpuscular Hemoglobin (test code = 785-6) 29.9 28-32 [facility] [facility] Concent 2019-07-19 04:01:00* Test Item Value Reference Range Interpretation Comments Mean Corpuscular Hemoglobin Concent (test code = 786-4) 33.0 31-35 [facility] Distribution [id number] 04:01:00* Test Item Value Reference Range Interpretation Comments Red Cell Distribution Width (test code = 16360-1) 12.8 11.7 -14.4 [facility]atelet [id number] 04:01:00* Test Item Value Reference Range Interpretation Comments Platelet Count (test code = 777-3) 286 140-360 [facility]Neutrophils (%) (Auto)2019-07-19 04:01:00 * Test Item Value Reference Range Interpretation Comments Neutrophils (%) (Auto) (test code = 75663-0) 84.6 38.7-80.0 [facility]ymphocytes (%) (Auto)2019-07-19 04:01:00 * Test Item Value Reference Range Interpretation Comments Lymphocytes (%) (Auto) (test code = 736-9) 5.9 18.0-39.1 [facility]ocytes (%) (Auto)2019-07-19 04:01:00* Test Item Value Reference Range Interpretation Comments Monocytes (%) (Auto) (test code = 5905-5) 8.4 4.4-11.3 [facility]osinophils (%) (Auto)2019-07-19 04:01:00 * Test Item Value Reference Range Interpretation Comments Eosinophils (%) (Auto) (test code = 713-8) 0.1 0.0-6.0 [facility]ophils (%) (Auto)2019-07-19 04:01:00* Test Item Value Reference Range Interpretation Comments Basophils (%) (Auto) (test code = 706-2) 0.4 0.0-1.0 [facility] GRANULOCYTES %2019-07-19 04:01:00* Test Item Value Reference Range Interpretation Comments IM GRANULOCYTES % (test code = IM GRANULOCYTES %) 0.6 0.0- 1.0 [facility]Neutrophils # (Auto)2019-07-19 04:01:00* Test Item Value Reference Range Interpretation Comments Neutrophils # (Auto) (test code = 751-8) 7.2 2.1-6.9 [facility]Lymphocytes # (Auto)2019-07-19 04:01:00* Test Item Value Reference Range Interpretation Comments Lymphocytes # (Auto) (test code = 11965-5) 0.5 1.0-3.2 [facility]ocytes # (Auto)2019-07-19 04:01:00* Test Item Value Reference Range Interpretation Comments Monocytes # (Auto) (test code = 742-7) 0.7 0.2-0.8 [facility]osinophils # (Auto)2019-07-19 04:01:00* Test Item Value Reference Range Interpretation Comments Eosinophils # (Auto) (test code = 711-2) 0.0 0.0-0.4 [facility]ophils # (Auto)2019-07-19 04:01:00* Test Item Value Reference Range Interpretation Comments Basophils # (Auto) (test code = 704-7) 0.0 0.0-0.1 [facility]Absolute Immature Granulocyte (auto 2019-07-19 04:01:00* Test Item Value Reference Range Interpretation Comments Absolute Immature Granulocyte (auto (pedro luis t code = Absolute Immature Granulocyte (auto) 0.05 0-0.1 [facility]White Blood [id number] 04:01:00* Test Item Value Reference Range Interpretation Comments White Blood Count (test code = 6690-2) 8.48 4.8-10.8 [facility]Red Blood [id number] 04:01:00* Test Item Value Reference Range Interpretation Comments Red Blood Count (test code = 789-8) 4.91 4.3-5.7 [facility]Hemoglobin2020-03-03 04:01:00* Test Item Value Reference Range Interpretation Comments Hemoglobin (test code = 75868-5) 14.7 14.0-18.0 [facility]Hematocrit2020-03-03 04:01:00* Test Item Value Reference Range Interpretation Comments Hematocrit (test code = 4544-3) 44.5 38.2-49.6 [facility]Mean Corpuscular [id number] 04:01:00* Test Item Value Reference Range Interpretation Comments Mean Corpuscular Volume (test code = 787-2) 90.6 81-99 [facility]Mean Corpuscular [id number] 04:01:00* Test Item Value Reference Range Interpretation Comments Mean Corpuscular Hemoglobin (test code = 785-6) 29.9 28-32 [facility] Corpuscular Hemoglobin Concent 2019-07-19 04:01:00* Test Item Value Reference Range Interpretation Comments Mean Corpuscular Hemoglobin Concent (test code = 786-4) 33.0 31-35 [facility]Red Cell Distribution [id number] 04:01:00* Test Item Value Reference Range Interpretation Comments Red Cell Distribution Width (test code = 45646-4) 12.8 11.7 -14.4 [facility]Platelet [id number] 04:01:00* Test Item Value Reference Range Interpretation Comments Platelet Count (test code = 777-3) 286 140-360 [facility]Neutrophils (%) (Auto)2019-07-19 04:01:00 * Test Item Value Reference Range Interpretation Comments Neutrophils (%) (Auto) (test code = 70499-7) 84.6 38.7-80.0 [facility]Lymphocytes (%) (Auto)2019-07-19 04:01:00 * Test Item Value Reference Range Interpretation Comments Lymphocytes (%) (Auto) (test code = 736-9) 5.9 18.0-39.1 [facility]ocytes (%) (Auto)2019-07-19 04:01:00* Test Item Value Reference Range Interpretation Comments Monocytes (%) (Auto) (test code = 5905-5) 8.4 4.4-11.3 [facility]osinophils (%) (Auto)2019-07-19 04:01:00 * Test Item Value Reference Range Interpretation Comments Eosinophils (%) (Auto) (test code = 713-8) 0.1 0.0-6.0 [facility]ophils (%) (Auto)2019-07-19 04:01:00* Test Item Value Reference Range Interpretation Comments Basophils (%) (Auto) (test code = 706-2) 0.4 0.0-1.0 [facility]IM GRANULOCYTES %2019-07-19 04:01:00* Test Item Value Reference Range Interpretation Comments IM GRANULOCYTES % (test code = IM GRANULOCYTES %) 0.6 0.0- 1.0 [facility]Neutrophils # (Auto)2019-07-19 04:01:00* Test Item Value Reference Range Interpretation Comments Neutrophils # (Auto) (test code = 751-8) 7.2 2.1-6.9 [facility]Lymphocytes # (Auto)2019-07-19 04:01:00* Test Item Value Reference Range Interpretation Comments Lymphocytes # (Auto) (test code = 04196-4) 0.5 1.0-3.2 [facility]Monocytes # (Auto)2019-07-19 04:01:00* Test Item Value Reference Range Interpretation Comments Monocytes # (Auto) (test code = 742-7) 0.7 0.2-0.8 [facility]Eosinophils # (Auto)2019-07-19 04:01:00* Test Item Value Reference Range Interpretation Comments Eosinophils # (Auto) (test code = 711-2) 0.0 0.0-0.4 [facility]ophils # (Auto)2019-07-19 04:01:00* Test Item Value Reference Range Interpretation Comments Basophils # (Auto) (test code = 704-7) 0.0 0.0-0.1 [facility]Absolute Immature Granulocyte (auto 2019-07-19 04:01:00* Test Item Value Reference Range Interpretation Comments Absolute Immature Granulocyte (auto (pedr oluis t code = Absolute Immature Granulocyte (auto) 0.05 0-0.1 [facility]burgInfluenza Virus Types A,B Antigen 2019-07-19 03:05:00* Test Item Value Reference Range Interpretation Comments Influenza Virus Types A,B Antigen (test code = 61538-4) NEGATIVE NEGATIVE [facility]burgGroup A Streptococcus [id number] 03:05:00* Test Item Value Reference Range Interpretation Comments Group A Streptococcus Screen (test code = 48942-4) NEGATIVE NEG ATIVE [facility]ABDOM[facility])2018-02-23 09:02:00 [place] [address] Patient Name: MANFRED CHRISTENSEN MR #: [id number] : 0 1995 Age/Sex: 23/M Req #: [id number] Adm Physician: Ordered by: POONAM DAVID MD Report #: [id number] Location: ER Room/Bed: Procedure: DX/ABDOMEN-1VIEW (KUB) Exam Date: 02/23/18 E xam Time: 0810 REPORT STATUS: Jessica d PROCEDURE: X-RAY ABDOMEN - KUB COMPARISON: None. INDICATION S: ABDOMINAL PAIN FINDINGS: There is a non-obstructive bowel-gas pa ttern. There are no calcifications projected over the renal shadows, expected course of the ureters or bladder. No significantly elevated stool burden. Th ere are no acute osseous abnormalities. The lung bases are clear. CONCL USION: Unremarkable abdominal radiographs. Dictated by: PREMA DRUMMOND M.D. on 02/23/2018 at 9:02 Electronically approved by: PREMA DRUMMOND M.D. on 02/23/2018 at 9:02 Dictated By: PREMA DRUMMOND MD 09 Transcribed By: NGA on 02/23/18 09 2 COPY TO: POONAM DAVID MD ABDOMEN-1VIEW (KUB)2018-02-23 09:02:00 [place] [address] Patient Name: MANFRED CHRISTENSEN MR #: [id number] : 1995 Age/Sex: 23/M Req #: [id number] Adm Physician: Ordered by: POONAM DAVID MD Report #: [id number] Location: ER Room/Bed: Procedure: DX/ABDOMEN-1VIEW (KUB) Exam Date: 02/23/18 E xam Time: 809 REPORT STATUS: Jessica d PROCEDURE: X-RAY ABDOMEN - KUB COMPARISON: None. INDICATION S: ABDOMINAL PAIN FINDINGS: There is a non-obstructive bowel-gas pa ttern. There are no calcifications projected over the renal shadows, expected course of the ureters or bladder. No significantly elevated stool burden. Th ere are no acute osseous abnormalities. The lung bases are clear. CONCL USION: Unremarkable abdominal radiographs. Dictated by: PREMA DRUMMOND M.D. on 02/23/2018 at 9:02 Electronically approved by: PREMA DRUMMOND M.D. on 02/23/2018 at 9:02 Dictated By: PREMA DRUMMOND MD 1 Transcribed By: NGA on 02/23/18 2 COPY TO: POONAM DAVID MD CBC W/PLT COUNT & AUTO [id number] 07:24:00* Test Item Value Reference Range Interpretation Comments WHITE BLOOD CELL COUNT (BEAKER) (test code = 775) 8.5 K/ L 4.0- 10.0 RED BLOOD CELL COUNT (BEAKER) (test code = 761) 4.71 M/ L 4.20-5 .80 HEMOGLOBIN (BEAKER) (test code = 410) 13.9 GM/DL 13.0-16.8 HEMATOCRIT (BEAKER) (test code = 411) 43.5 % 40.0-50.0 MEAN CORPUSCULAR VOLUME (BEAKER) (test code = 753) 92.3 fL 82. 0-98.0 MEAN CORPUSCULAR HEMOGLOBIN (BEAKER) (test code = 751) 29.5 pg 27.0-33.0 MEAN CORPUSCULAR HEMOGLOBIN CONC (BEAKER) (test code = 752) 32.0 GM/DL 32.0-36.0 RED CELL DISTRIBUTION WIDTH (BEAKER) (test code = 412) 12.3 % 10.3-14.2 PLATELET COUNT (BEAKER) (test code = 756) 283 K/CU MM 150-430 MEAN PLATELET VOLUME (BEAKER) (test code = 754) 7.2 fL 6.5-10 .5 NUCLEATED RED BLOOD CELLS (BEAKER) (test code = 413) 0 /100 WBC 0 -0 NEUTROPHILS RELATIVE PERCENT (BEAKER) (test code = 429) 59 % LYMPHOCYTES RELATIVE PERCENT (BEAKER) (test code = 430) 33 % MONOCYTES RELATIVE PERCENT (BEAKER) (test code = 431) 7 % EOSINOPHILS RELATIVE PERCENT (BEAKER) (test code = 432) 1 % BASOPHILS RELATIVE PERCENT (BEAKER) (test code = 437) 1 % NEUTROPHILS ABSOLUTE COUNT (BEAKER) (test code = 670) 5.00 K/ L 1.80-8.00 LYMPHOCYTES ABSOLUTE COUNT (BEAKER) (test code = 414) 2.78 K/ L 1.48-4.50 MONOCYTES ABSOLUTE COUNT (BEAKER) (test code = 415) 0.59 K/ L 0. 00-1.30 EOSINOPHILS ABSOLUTE COUNT (BEAKER) (test code = 416) 0.09 K/ L 0.00-0.50 BASOPHILS ABSOLUTE COUNT (BEAKER) (test code = 417) 0.05 K/ L 0. 00-0.20 0.00COMPREHENSIVE METABOLIC [id number] 06:50:00* Test Item Value Reference Range Interpretation Comments TOTAL PROTEIN (BEAKER) (test code = 770) 7.3 gm/dL 6.0-8.3 Specimen moderately hemolyzed ALBUMIN (BEAKER) (test code = 1145) 3.7 g/dL 3.5-5.0 Specimen moderately hemolyzed ALKALINE PHOSPHATASE (BEAKER) (test code = 346) 80 U/L 40-150 BILIRUBIN TOTAL (BEAKER) (test code = 377) 0.4 mg/dL 0.2-1.2 Specimen moderately hemolyzed SODIUM (BEAKER) (test code = 381) 137 meq/L 136-145 POTASSIUM (BEAKER) (test code = 379) 4.3 meq/L 3.5-5.1 Specimen moderately hemolyzed CHLORIDE (BEAKER) (test code = 382) 105 meq/L 98-107 CO2 (BEAKER) (test code = 355) 24 meq/L 22-29 BLOOD UREA NITROGEN (BEAKER) (test code = 354) 12 mg/dL 7-21 CREATININE (BEAKER) (test code = 358) 0.75 mg/dL 0.57-1.25 Specimen moderately hemolyzed GLUCOSE RANDOM (BEAKER) (test code = 652) 103 mg/dL 70-105 CALCIUM (BEAKER) (test code = 697) 8.8 mg/dL 8.4-10.2 AST (SGOT) (BEAKER) (test code = 353) 25 U/L 5-34 Specimen moderately hemolyzed ALT (SGPT) (BEAKER) (test code = 347) 31 U/L 6-55 Specimen moderately hemolyzed EGFR (BEAKER) (test code = 1092) 131 mL/min/1.73 sq m ESTIMATED GFR IS NOT ACCURATE CREATININE CLEARANCE IN PREDICTING GLOMERULAR FILTRATION RATE. ESTIMATED GFR IS NOT APPLICABLE FOR DIALYSIS PATIENTS. CBC W/PLT COUNT & AUTO [id number] 17:37:00* Test Item Value Reference Range Interpretation Comments WHITE BLOOD CELL COUNT (BEAKER) (test code = 775) 9.5 K/ L 4.0- 10.0 RED BLOOD CELL COUNT (BEAKER) (test code = 761) 4.52 M/ L 4.20-5 .80 HEMOGLOBIN (BEAKER) (test code = 410) 13.9 GM/DL 13.0-16.8 HEMATOCRIT (BEAKER) (test code = 411) 40.6 % 40.0-50.0 MEAN CORPUSCULAR VOLUME (BEAKER) (test code = 753) 89.8 fL 82. 0-98.0 MEAN CORPUSCULAR HEMOGLOBIN (BEAKER) (test code = 751) 30.8 pg 27.0-33.0 MEAN CORPUSCULAR HEMOGLOBIN CONC (BEAKER) (test code = 752) 34.3 GM/DL 32.0-36.0 RED CELL DISTRIBUTION WIDTH (BEAKER) (test code = 412) 13.3 % 10.3-14.2 PLATELET COUNT (BEAKER) (test code = 756) 268 K/CU MM 150-430 MEAN PLATELET VOLUME (BEAKER) (test code = 754) 7.5 fL 6.5-10 .5 NUCLEATED RED BLOOD CELLS (BEAKER) (test code = 413) 0 /100 WBC 0 -0 NEUTROPHILS RELATIVE PERCENT (BEAKER) (test code = 429) 80 % LYMPHOCYTES RELATIVE PERCENT (BEAKER) (test code = 430) 13 % MONOCYTES RELATIVE PERCENT (BEAKER) (test code = 431) 6 % EOSINOPHILS RELATIVE PERCENT (BEAKER) (test code = 432) 1 % BASOPHILS RELATIVE PERCENT (BEAKER) (test code = 437) 0 % NEUTROPHILS ABSOLUTE COUNT (BEAKER) (test code = 670) 7.55 K/ L 1.80-8.00 LYMPHOCYTES ABSOLUTE COUNT (BEAKER) (test code = 414) 1.25 K/ L 1.48-4.50 L MONOCYTES ABSOLUTE COUNT (BEAKER) (test code = 415) 0.57 K/ L 0. 00-1.30 EOSINOPHILS ABSOLUTE COUNT (BEAKER) (test code = 416) 0.06 K/ L 0.00-0.50 BASOPHILS ABSOLUTE COUNT (BEAKER) (test code = 417) 0.01 K/ L 0. 00-0.20 [id number] 16:44:00* Test Item Value Reference Range Interpretation Comments CARBAMAZEPINE LEVEL (BEAKER) (test code = 696) < ug/mL 4.0-12. 0 L BASIC METABOLIC [id number] 16:29:00* Test Item Value Reference Range Interpretation Comments SODIUM (BEAKER) (test code = 381) 137 meq/L 136-145 POTASSIUM (BEAKER) (test code = 379) 4.3 meq/L 3.5-5.1 Specimen slightly hemolyzed CHLORIDE (BEAKER) (test code = 382) 104 meq/L 98-107 CO2 (BEAKER) (test code = 355) 22 meq/L 22-29 BLOOD UREA NITROGEN (BEAKER) (test code = 354) 17 mg/dL 7-21 CREATININE (BEAKER) (test code = 358) 0.77 mg/dL 0.57-1.25 Specimen slightly hemolyzed GLUCOSE RANDOM (BEAKER) (test code = 652) 106 mg/dL 70-105 H CALCIUM (BEAKER) (test code = 697) 9.2 mg/dL 8.4-10.2 EGFR (BEAKER) (test code = 1092) 128 mL/min/1.73 sq m ESTIMATED GFR IS NOT ACCURATE CREATININE CLEARANCE IN PREDICTING GLOMERULAR FILTRATION RATE. ESTIMATED GFR IS NOT APPLICABLE FOR DIALYSIS PATIENTS. VITAMIN D, [id number] 06:31:00* Test Item Value Reference Range Interpretation Comments VITAMIN D 25-OH (BEAKER) (test code = 2764) < ng/mL 13.0-47.8 L TSH/FREE T4 IF [id number] 06:22:00* Test Item Value Reference Range Interpretation Comments THYROID STIMULATING HORMONE (BEAKER) (test code = 772) 0.97 uIU/mL 0.35-4.94 VITAMIN B12 AND [id number] 06:22:00* Test Item Value Reference Range Interpretation Comments VITAMIN B12 (BEAKER) (test code = 774) 379 pg/mL 213-816 FOLATE (BEAKER) (test code = 362) 6.0 ng/mL >=7.0 L Effective 04/04/2014: Folate Reference Range ChangeNew: >=7.0 Previous: >=5.4 COMPREHENSIVE METABOLIC [id number] 05:56:00* Test Item Value Reference Range Interpretation Comments TOTAL PROTEIN (BEAKER) (test code = 770) 6.5 gm/dL 6.0-8.3 ALBUMIN (BEAKER) (test code = 1145) 3.6 g/dL 3.5-5.0 ALKALINE PHOSPHATASE (BEAKER) (test code = 346) 78 U/L 40-150 BILIRUBIN TOTAL (BEAKER) (test code = 377) 0.3 mg/dL 0.2-1.2 SODIUM (BEAKER) (test code = 381) 137 meq/L 136-145 POTASSIUM (BEAKER) (test code = 379) 4.0 meq/L 3.5-5.1 CHLORIDE (BEAKER) (test code = 382) 105 meq/L 98-107 CO2 (BEAKER) (test code = 355) 25 meq/L 22-29 BLOOD UREA NITROGEN (BEAKER) (test code = 354) 11 mg/dL 7-21 CREATININE (BEAKER) (test code = 358) 0.69 mg/dL 0.57-1.25 GLUCOSE RANDOM (BEAKER) (test code = 652) 115 mg/dL 70-105 H CALCIUM (BEAKER) (test code = 697) 8.7 mg/dL 8.4-10.2 AST (SGOT) (BEAKER) (test code = 353) 18 U/L 5-34 ALT (SGPT) (BEAKER) (test code = 347) 24 U/L 6-55 EGFR (BEAKER) (test code = 1092) 145 mL/min/1.73 sq m ESTIMATED GFR IS NOT ACCURATE CREATININE CLEARANCE IN PREDICTING GLOMERULAR FILTRATION RATE. ESTIMATED GFR IS NOT APPLICABLE FOR DIALYSIS PATIENTS. PHENYTOIN LEVEL, [id number] 05:54:00* Test Item Value Reference Range Interpretation Comments PHENYTOIN (DILANTIN) (BEAKER) (test code = 605) 0.9 ug/mL 10.0-2 0.0 L HEPATIC FUNCTION [id number] 05:51:00* Test Item Value Reference Range Interpretation Comments TOTAL PROTEIN (BEAKER) (test code = 770) 6.4 gm/dL 6.0-8.3 ALBUMIN (BEAKER) (test code = 1145) 3.7 g/dL 3.5-5.0 BILIRUBIN TOTAL (BEAKER) (test code = 377) 0.3 mg/dL 0.2-1.2 BILIRUBIN DIRECT (BEAKER) (test code = 706) 0.1 mg/dL 0.1-0.5 ALKALINE PHOSPHATASE (BEAKER) (test code = 346) 77 U/L 40-150 AST (SGOT) (BEAKER) (test code = 353) 16 U/L 5-34 ALT (SGPT) (BEAKER) (test code = 347) 24 U/L 6-55 CBC (HEMOGRAM ONLY)2016-07-07 05:47:00* Test Item Value Reference Range Interpretation Comments WHITE BLOOD CELL COUNT (BEAKER) (test code = 775) 9.0 K/ L 4.0- 10.0 RED BLOOD CELL COUNT (BEAKER) (test code = 761) 4.68 M/ L 4.20-5 .80 HEMOGLOBIN (BEAKER) (test code = 410) 14.4 GM/DL 13.0-16.8 HEMATOCRIT (BEAKER) (test code = 411) 43.1 % 40.0-50.0 MEAN CORPUSCULAR VOLUME (BEAKER) (test code = 753) 92.0 fL 82. 0-98.0 MEAN CORPUSCULAR HEMOGLOBIN (BEAKER) (test code = 751) 30.7 pg 27.0-33.0 MEAN CORPUSCULAR HEMOGLOBIN CONC (BEAKER) (test code = 752) 33.4 GM/DL 32.0-36.0 RED CELL DISTRIBUTION WIDTH (BEAKER) (test code = 412) 12.0 % 10.3-14.2 PLATELET COUNT (BEAKER) (test code = 756) 287 K/CU MM 150-430 MEAN PLATELET VOLUME (BEAKER) (test code = 754) 7.0 fL 6.5-10 .5 NUCLEATED RED BLOOD CELLS (BEAKER) (test code = 413) 0 /100 WBC 0 -0 0.00RAPID DRUG SCREEN, [id number] 11:54:00* Test Item Value Reference Range Interpretation Comments BARBITURATE URINE (BEAKER) (test code = 725) Negative Negative BENZODIAZEPINE SCREEN URINE (BEAKER) (test code = 726) Negative Negative COCAINE (METAB.) SCREEN (BEAKER) (test code = 1164) Negative Ne gative METHADONE SCREEN (BEAKER) (test code = 1436) Negative Negative OPIATE SCREEN URINE (BEAKER) (test code = 734) Negative Negativ e CANNABINOID SCREEN URINE (BEAKER) (test code = 727) Negative Ne gative AMPH/METHAMPH SCREEN (BEAKER) (test code = 1438) Negative Negat sera PHENCYCLIDINE SCREEN URINE (BEAKER) (test code = 608) Negative Negative OXYCODONE SCREEN URINE (BEAKER) (test code = 2761) Negative Neg ative DRUG CUTOFF CONC.Cocaine 300 ng/mL Cannabinoid 50 ng/mL Benzodiazepine 200 ng/mLBarbiturate 200 ng/mLPh encyclidine 25 ng/mLOpiate 300 ng/mLMethadone 300 ng/mLAmphetamine/ 1000 ng/mL MethamphetamineOxycodone 300 ng/mLURINALYSIS W/ [id number] 11:47:00* Test Item Value Reference Range Interpretation Comments COLOR (BEAKER) (test code = 470) Yellow CLARITY (BEAKER) (test code = 469) Hazy SPECIFIC GRAVITY UA (BEAKER) (test code = 468) 1.020 1.001-1 .035 PH UA (BEAKER) (test code = 467) 7.5 5.0-8.0 PROTEIN UA (BEAKER) (test code = 464) 10 mg/dL Negative A GLUCOSE UA (BEAKER) (test code = 365) Negative Negative KETONES UA (BEAKER) (test code = 371) Negative Negative BILIRUBIN UA (BEAKER) (test code = 462) Negative Negative BLOOD UA (BEAKER) (test code = 461) Negative Negative NITRITE UA (BEAKER) (test code = 465) Negative Negative LEUKOCYTE ESTERASE UA (BEAKER) (test code = 466) Trace Negat sera A UROBILINOGEN UA (BEAKER) (test code = 463) 2.0 mg/dL 0.2-1.0 H RBC UA (BEAKER) (test code = 519) 0 /HPF WBC UA (BEAKER) (test code = 520) 0 /HPF MUCUS (BEAKER) (test code = 1574) Rare SQUAMOUS EPITHELIAL (BEAKER) (test code = 516) 1 /HPF YEAST (BEAKER) (test code = 1585) Few SOURCE(BEAKER) (test code = 2795) Urine, Clean Catch BASIC METABOLIC [id number] 11:28:00* Test Item Value Reference Range Interpretation Comments SODIUM (BEAKER) (test code = 381) 137 meq/L 136-145 POTASSIUM (BEAKER) (test code = 379) 4.0 meq/L 3.5-5.1 CHLORIDE (BEAKER) (test code = 382) 102 meq/L 98-107 CO2 (BEAKER) (test code = 355) 25 meq/L 22-29 BLOOD UREA NITROGEN (BEAKER) (test code = 354) 13 mg/dL 7-21 CREATININE (BEAKER) (test code = 358) 0.78 mg/dL 0.57-1.25 GLUCOSE RANDOM (BEAKER) (test code = 652) 114 mg/dL 70-105 H CALCIUM (BEAKER) (test code = 697) 9.4 mg/dL 8.4-10.2 EGFR (BEAKER) (test code = 1092) 126 mL/min/1.73 sq m ESTIMATED GFR IS NOT ACCURATE CREATININE CLEARANCE IN PREDICTING GLOMERULAR FILTRATION RATE. ESTIMATED GFR IS NOT APPLICABLE FOR DIALYSIS PATIENTS. CBC W/PLT COUNT & AUTO [id number] 11:25:00* Test Item Value Reference Range Interpretation Comments WHITE BLOOD CELL COUNT (BEAKER) (test code = 775) 10.3 K/ L 4.0- 10.0 H RED BLOOD CELL COUNT (BEAKER) (test code = 761) 4.67 M/ L 4.20-5 .80 HEMOGLOBIN (BEAKER) (test code = 410) 14.4 GM/DL 13.0-16.8 HEMATOCRIT (BEAKER) (test code = 411) 42.0 % 40.0-50.0 MEAN CORPUSCULAR VOLUME (BEAKER) (test code = 753) 90.0 fL 82. 0-98.0 MEAN CORPUSCULAR HEMOGLOBIN (BEAKER) (test code = 751) 30.9 pg 27.0-33.0 MEAN CORPUSCULAR HEMOGLOBIN CONC (BEAKER) (test code = 752) 34.3 GM/DL 32.0-36.0 RED CELL DISTRIBUTION WIDTH (BEAKER) (test code = 412) 13.0 % 10.3-14.2 PLATELET COUNT (BEAKER) (test code = 756) 310 K/CU MM 150-430 MEAN PLATELET VOLUME (BEAKER) (test code = 754) 7.2 fL 6.5-10 .5 NUCLEATED RED BLOOD CELLS (BEAKER) (test code = 413) 0 /100 WBC 0 -0 NEUTROPHILS RELATIVE PERCENT (BEAKER) (test code = 429) 79 % LYMPHOCYTES RELATIVE PERCENT (BEAKER) (test code = 430) 14 % MONOCYTES RELATIVE PERCENT (BEAKER) (test code = 431) 5 % EOSINOPHILS RELATIVE PERCENT (BEAKER) (test code = 432) 1 % BASOPHILS RELATIVE PERCENT (BEAKER) (test code = 437) 0 % NEUTROPHILS ABSOLUTE COUNT (BEAKER) (test code = 670) 8.13 K/ L 1.80-8.00 H LYMPHOCYTES ABSOLUTE COUNT (BEAKER) (test code = 414) 1.41 K/ L 1.48-4.50 L MONOCYTES ABSOLUTE COUNT (BEAKER) (test code = 415) 0.56 K/ L 0. 00-1.30 EOSINOPHILS ABSOLUTE COUNT (BEAKER) (test code = 416) 0.11 K/ L 0.00-0.50 BASOPHILS ABSOLUTE COUNT (BEAKER) (test code = 417) 0.04 K/ L 0. 00-0.20 0.00
[2019-10-03] MEDS ORDERED: ALBUTEROL SULF 0.083% NEB SOLN 3 ML NEB NEB STA (15:06)
--- NOTE | 2019-10-03 15:30 | NUR ---
NO ANSWER FOR RADIOLOGY AT THIS TIME; PATIENT NOT IN WAITING ROOM, RESTROOM, OR OUTSIDE
--- NOTE | 2019-10-03 16:02 | NUR ---
NO ANSWER FOR RADIOLOGY AT THIS TIME
== END 2019-10-03 15:30 | disposition left against medical advice (07) ==
LOC: ER 14:12
DX: R06.00 Dyspnea, unspecified (principal)

== ENCOUNTER 2021-03-10 06:53 | Emergency (ER) | payer OTHER ==
[~2021-03-10] VITALS: Ht 177.8 cm; Wt 136.1 kg
[2021-03-10] MEDS ORDERED: SODIUM CHLORIDE 0.9% 1000ML 1,000 ML IV STA (07:08)
[2021-03-10] MEDS ORDERED: LEVETIRACETAM 500MG/5ML VIAL 1,000 MG in SODIUM CHLORIDE 0.9% 100 ML 100 ML IV ONE (07:15)
[2021-03-10 07:19] LABS: BASOPHILS % 0.3 % (0.0-1.0); EOSINOPHILS # (AUTO) 0.2 (0.0-0.4); EOSINOPHILS % 1.3 % (0.0-6.0); HEMATOCRIT 41.9 % (38.2-49.6); HEMOGLOBIN 13.6 g/dL (14.0-18.0); LYMPHOCYTES # (AUTO) 1.5 (1.0-3.2); LYMPHOCYTES % 12.3 % (18.0-39.1); MEAN CORPUSCULAR HEMOGLOBIN 29.8 pg (28-32); MEAN CORPUSCULAR HGB CONC 32.5 g/dL (31-35); MEAN CORPUSCULAR VOLUME 91.7 fL (81-99); MONOCYTES # (AUTO) 0.6 (0.2-0.8); MONOCYTES % 5.2 % (4.4-11.3); NEUTROPHILS # (AUTO) 9.7 (2.1-6.9); NEUTROPHILS % 80.4 % (38.7-80.0); PLATELET COUNT 285 x10e3/uL (140-360); RED BLOOD COUNT 4.57 x10e6/uL (4.3-5.7); RED CELL DISTRIBUTION WIDTH 12.7 % (11.7-14.4)
[2021-03-10 07:22] LABS: AMPHETAMINES SCREEN,URINE NEGATIVE (NEGATIVE); BENZODIAZEPINES SCREEN,URINE NEGATIVE (NEGATIVE); PHENCYCLIDINE SCREEN,URINE NEGATIVE (NEGATIVE)
[2021-03-10 07:23] LABS: CLARITY,URINE CLEAR (CLEAR); COLOR,URINE YELLOW (YELLOW); KETONES,URINE TRACE (NEGATIVE); LEUKOCYTE ESTERASE ,URINE NEGATIVE (NEGATIVE); NITRITE,URINE NEGATIVE (NEGATIVE); PROTEIN,URINE DIPSTICK TRACE (NEGATIVE); URINE UROBILINOGEN 0.2 mg/dL (0.2 - 1)
[2021-03-10 07:33] LABS: EPITHELIAL CELLS,URINE RARE /LPF; RBC,URINE 0-5 /HPF (0-5)
[2021-03-10 07:37] LABS: ALBUMIN 4.2 g/dL (3.5-5.0); ALBUMIN/GLOBULIN RATIO 1.3 (0.8-2.0); ANION GAP 16.9 mmol/L (8-16); CALCIUM 9.1 mg/dL (8.4-10.2); CREATININE, SERUM 0.97 mg/dL (0.72-1.25); MAGNESIUM 2.2 MG/DL (1.3-2.1); POTASSIUM 3.9 mmol/L (3.5-5.1)
[2021-03-10] MEDS ORDERED: LEVETIRACETAM 500 MG/5 ML VIAL IV ONE (08:20)
[2021-03-10] MEDS ORDERED: SODIUM CHLORIDE 0.9% 100 ML ONE (08:28)
== END 2021-03-10 09:13 | disposition home or self-care (01) ==
LOC: ER 07:15
DX: G40.909 Epilepsy, unspecified, not intractable, without status epilepticus (principal); Z87.442 Personal history of urinary calculi
CPT/HCPCS: 36415; 70450; 72125; 80053; 80307; 81001; 83735; 85025; 93005; 99284; J1953; J7030; J7050

== ENCOUNTER 2021-06-02 04:16 | Emergency (ER) | payer OTHER ==
[~2021-06-02] VITALS: Ht 177.8 cm; Wt 136.1 kg
[2021-06-02] MEDS ORDERED: LEVETIRACETAM 500MG/5ML VIAL 2,000 MG in SODIUM CHLORIDE 0.9% 100 ML IV ONE (04:45)
[2021-06-02 05:11] LABS: BASOPHILS # (AUTO) 0.1 (0.0-0.1); BASOPHILS % 0.7 % (0.0-1.0); EOSINOPHILS # (AUTO) 0.2 (0.0-0.4); EOSINOPHILS % 1.6 % (0.0-6.0); HEMATOCRIT 43.1 % (38.2-49.6); HEMOGLOBIN 14.1 g/dL (14.0-18.0); LYMPHOCYTES # (AUTO) 1.4 (1.0-3.2); LYMPHOCYTES % 15.7 % (18.0-39.1); MEAN CORPUSCULAR HEMOGLOBIN 30.2 pg (28-32); MEAN CORPUSCULAR HGB CONC 32.7 g/dL (31-35); MEAN CORPUSCULAR VOLUME 92.3 fL (81-99); MONOCYTES # (AUTO) 0.5 (0.2-0.8); MONOCYTES % 5.1 % (4.4-11.3); NEUTROPHILS # (AUTO) 7.1 (2.1-6.9); NEUTROPHILS % 76.8 % (38.7-80.0); PLATELET COUNT 272 x10e3/uL (140-360); RED BLOOD COUNT 4.67 x10e6/uL (4.3-5.7); RED CELL DISTRIBUTION WIDTH 12.3 % (11.7-14.4)
[2021-06-02 05:20] LABS: CLARITY,URINE CLEAR (CLEAR); COLOR,URINE YELLOW (YELLOW); KETONES,URINE NEGATIVE (NEGATIVE); LEUKOCYTE ESTERASE ,URINE NEGATIVE (NEGATIVE); NITRITE,URINE NEGATIVE (NEGATIVE); PROTEIN,URINE DIPSTICK NEGATIVE (NEGATIVE); URINE UROBILINOGEN 0.2 mg/dL (0.2 - 1)
[2021-06-02 05:23] LABS: AMPHETAMINES SCREEN,URINE NEGATIVE (NEGATIVE); BENZODIAZEPINES SCREEN,URINE POSITIVE (NEGATIVE); PHENCYCLIDINE SCREEN,URINE NEGATIVE (NEGATIVE)
[2021-06-02 05:28] LABS: ALBUMIN/GLOBULIN RATIO 1.1 (0.8-2.0); ANION GAP 11.5 mmol/L (8-16); CALCIUM 9.1 mg/dL (8.4-10.2); CREATININE, SERUM 0.91 mg/dL (0.72-1.25); POTASSIUM 3.5 mmol/L (3.5-5.1)
[2021-06-02 05:34] LABS: BACTERIA,URINE RARE /HPF; EPITHELIAL CELLS,URINE FEW /LPF
== END 2021-06-02 07:16 | disposition home or self-care (01) ==
LOC: ER 04:21
DX: G40.909 Epilepsy, unspecified, not intractable, without status epilepticus (principal); R50.9 Fever, unspecified; R51.9 Headache, unspecified; Z20.822 Contact with and (suspected) exposure to COVID-19; Z87.442 Personal history of urinary calculi
CPT/HCPCS: 36415; 71045; 80053; 80307; 81001; 85025; 93005; 99284; J1953; J7050; U0002

== ENCOUNTER 2021-10-24 01:09 | Emergency (ER) | payer OTHER ==
[~2021-10-24] VITALS: Ht 177.8 cm; Wt 136.1 kg
== END 2021-10-24 01:37 | disposition home or self-care (01) ==
LOC: ER 01:24
DX: R60.9 Edema, unspecified (principal); G40.909 Epilepsy, unspecified, not intractable, without status epilepticus; Z87.442 Personal history of urinary calculi
CPT/HCPCS: 99282